=== PATIENT | male | born 1955 | race Caucasian/White ===

== ENCOUNTER 2019-07-16 10:25 | Outpatient (CLI) | payer MEDICARE, OTHER ==
[~2019-07-16] VITALS: Ht 182.9 cm; Wt 63.6 kg
--- NOTE | ~2019-07-16 | HEMODYNAMI ---
PATIENT:FLAQUITA ACOSTA MEDICAL RECORD: [id number] : 51 LOCATION:[facility] ADMISSION DATE: 07/16/19 Generatedon:07/16/201913:30 Patient name: FLAQUITA ACOSTA Patient #: [id number] SSN: : 1955 Date of study: 07/16/2019 Page: Of Hemodynamic Procedure Report Patient Data Patient Demographics Procedure consent was obtained First Name: FLAQUITA Gender: Male Last Name: DAVE : 1955 Patient #: [id number] Age: 64 year(s) Race: Accession #: Ethnicity: or [id number] Additional ID: [id number] Contact details [address]: [address] [place] [address] [address]IVE State: [place] City: [place] Zip code: [address] Past Medical History Allergies: No known allergies Admission Admission Data Admission Date: 07/16/2019 Admission Time: 10:25 Arrival Date: 07/16/2019 Arrival Time: 0:00 Insurance Payor: Medicare Height (in.): 72 BSA: 1.84 (m2) Height (cm.): 182.88 BMI: 19.12 (kg/m2) Weight (lbs.): 141 Weight (kg.): 63.96 Lab Results Lab Result Date: 07/16/2019 Lab Result Time: 0:00 Biochemistry Name Units Result Min Max BUN mg/dl 10 --(-*--)-- 7 18 Creatinine mg/dl 1 --(--*-)-- 0.6 1.3 eGFR ml/min 79.32744 *-(----)-- 90 120 NONAFRICAN CBC Name Units Result Min Max Hematocrit % 42.6 --(*---)-- 42 54 Hemoglobin g/dl 14.5 --(*---)-- 13.5 17.5 Procedure Procedure Types Cath Procedure Diagnostic Procedure SANDIE Procedure Description Procedure Date Procedure Date: 07/16/2019 Procedure Start Time: 13:15 Procedure End Time: 13:28 Procedure Staff Name Function Leonardo Major MD Performing Physician Kevin Acosta Lime Kiln Operator Anastasia Mckinney RT Monitor Trish Blanchard RT Monitor Guillermo Solares RN Nurse Ceferino Rider CRNA Additional personnel Procedure Data Procedure Complications No complications Procedure Medications Medication Administration Route Dosage Oxygen etCO2 Nasal cannula 2 l/min Hurricaine Tensed P.O. 1 Sprays Refer to Anesthesia Notes for Sedation Medications Hemodynamics Rest BSA: 1.84 (m2) HGB: 14.5 (g/dl) O2 Consumption: Estimated: 213.88 (ml/min) O2 Consumption indexed: Estimated:116.24 (ml/min/m) Heart Rate: 70 (bpm) Snapshots Pre Cath Intra NCS Post Cath Vital Signs Time Heart Resp SPO2 etCO2 NIBP Rhythm Pain Sedation Rate (ipm) (%) (mmHg) (mmHg) Status Level (bpm) 13:13:36 79 18 98 33.7 108/67(80) NSR 0 (11) 10(A) , No pain 13:17:42 87 13 97 0.7 109/62(80) NSR 0 (11) 9(A) , No pain 13:21:48 86 16 99 2.2 112/64(86) NSR 0 (11) 9(A) , No pain 13:25:57 79 23 100 16.4 101/54(78) NSR 0 (11) 9(A) , No pain 13:26:53 80 24 100 17.9 114/68(86) NSR 0 (11) 10(A) , No pain Medications Time Medication Route Dose Verified Delivered Reason Notes Effectiv eness by by 13:14:59 Oxygen etCO2 2 Leonardo Li used for Nasal l/min [facility] Valentín Solares RN procedure cannula 13:15:08 Hurricaine P.O. 1 Leonardo Li Per Tensed Sprays St Valentín Solares RN physician 13:15:29 Refer to Leonardo Li Anesthesia St Valentín Solares RN Notes for Sedation Medications Procedure Log Time Note 12:57:51 Guillermo Solares RN sent for patient. Start room use. 12:58:36 H&P Date Dictated: 07/04/2019 Within 30 days and on chart., H&P Addendum completed by physician on day of procedure. (MUST COMPLETE FOR ALL OUTPATIENTS). 12:59:15 Patient allergic to No known allergies 13:00:08 Lab Result : BUN 10 mg/dl 13:00:08 Lab Result : Creatinine 1 mg/dl 13:00:08 Lab Result : eGFR NONAFRICAN 79.64017 ml/min 13:00:08 Lab Result : Hemoglobin 14.5 g/dl 13:00:08 Lab Result : Hematocrit 42.6 % 13:00:25 Lab results completed and on chart. 13:01:44 Informed consent obtained and on chart 13:01:52 Arrival Date: 07/16/2019 12:00:00 AM 13:02:00 Insurance Payor : Medicare 13:02:35 Patient Height : 72 inches 13:02:44 Patient Weight : 141 lbs 13:08:03 Kevin Lidgerwood Rouge Mixer present for SANDIE. 13:09:01 Patient arrived from Pre/Post Procedure Room to CCL 1. Patient remains on bed/stretcher for procedure. 13:09:05 Warm blankets applied, and salvador hugger turned on for patient comfort. 13:09:06 Correct patient and procedure confirmed by team. 13:09:06 ECG and BP/O2 sat monitors applied to patient. 13:11:25 Ceferino Rider CRNA present and monitoring patient for TIVA. 13:11:44 IV patent on arrival in left antecubital with 0.9% NaCl at KVO. 13:12:11 Procedure Status Elective Heart Cath (OP). 13:12:20 Procedure Status SANDIE. 13:12:24 Time tracking: Regular hours (M-F 7:00 - 5:00) 13:12:29 Plan of Care:Hemodynamics will remain stable., Cardiac rhythm will remain stable., Comfort level will be maintained., Respiratory function will remain adequate., Patient/ family verbilizes understanding of procedure., Procedure tolerated without complication., Recovers from procedure without complications.. 13:12:37 Vital chart was started 13:12:39 Baseline sample Acquired. 13:13:04 Full Disclosure recording started 13:13:16 Rhythm: sinus rhythm 13:13:20 Pre-procedure instructions explained to patient. 13:13:22 Pre-op teaching completed and patient verbalized understanding. 13:13:27 Family in patients room. 13:13:32 Patient NPO since Midnight. 13:13:36 Is the patient allergic to Iodine/contrast media? No. 13:13:40 Is patient on blood thinner?No 13:13:48 Patient diabetic? No. 13:14:18 Snore? Yes 13:14:22 Previous problem with sedation/anesthesia? No ? 13:14:28 Sleep apnea? No 13:14:30 Sleep apnea? No 13:14:32 Deviated septum? No 13:14:34 Opens mouth fully? Yes 13:14:35 Sticks out tongue? Yes 13:14:39 Airway obstruction? No ? 13:14:53 Airway obstruction? Yes empyhazema 13:14:59 Oxygen 2 l/min etCO2 Nasal cannula was administered by Guillermo Solares RN; used for procedure; Verbal order read back and verified. 13:15:00 Dentures? No ? 13:15:08 Hurricaine Tensed 1 Sprays P.O. was administered by Guillermo Solares RN; Per physician; Verbal order read back and verified. 13:15:15 Alarms reviewed by Alan Worrell 13:15:19 --------ALL STOP TIME OUT------ 13:15:21 Final Timeout: patient, procedure, and site verified with staff and physician. All members of the team are in agreement. 13:15:29 Refer to Anesthesia Notes for Sedation Medications was administered by Guillermo Solares RN; ; Verbal order read back and verified. 13:15:37 Sedation plan: TIVA Medication:Propofol 13:15:43 Procedure started. 13:15:45 SANDIE 13:16:06 SANDIE started. 13:17:16 Baseline sample Acquired. 13:22:13 SANDIE completed. 13:22:18 Procedure ended.(Physican Out) 13:22:49 Post procedure instruction explained to patient.Patient verbalizes understanding. 13:22:50 Patient needs reinforcement of post procedure teaching. 13:23:12 Procedure Complication : No complications 13:28:04 Vital chart was stopped 13:28:24 Operative report dictated upon procedure completion. 13:28:25 See physician's report for complete and final results. 13:28:31 Report given to Pre/Post Procedure Room. 13:28:36 Patient transfered to Pre/Post Procedure Room with Stretcher. 13:28:40 Procedure ended. 13:28:40 Full Disclosure recording stopped 13:28:43 End room use (Document Last) 13:29:19 End room use (Document Last) 13:29:46 End room use (Document Last) 13:30:15 End room use (Document Last) Signature Audit [place] Stage Time Signature Unsigned Intra-Procedure 07/16/2019 Trish Santo 1:29:19 PM RT(R) Intra-Procedure 07/16/2019 Guillermo Solares RN 1:29:46 PM Intra-Procedure 07/16/2019 Leonardo Myers 1:30:15 PM Valentín NUR Intra-Procedure 07/16/2019 Leonardo Myers 1:30:41 PM Valentín NUR [facility] [address] [place] [address]
[2019-07-16] MEDS ORDERED: CELEXA20 MG PO (10:53)
[2019-07-16] MEDS ORDERED: KEPPRA750 MG PO (10:53)
[2019-07-16] MEDS ORDERED: VALIUM10 MG PO (10:53)
[2019-07-16] MEDS ORDERED: PROTONIX40 MG PO (10:54)
[2019-07-16] MEDS ORDERED: SYMBICORT 16010.2 GM INH (10:54)
[2019-07-16] MEDS ORDERED: ALBUTEROL SULF8.5 GM INH (10:54)
[2019-07-16 10:59] VITALS: BP 129/54; Ht 182.9 cm; Wt 63.6 kg
--- NOTE | 2019-07-16 11:10 | NUR ---
PT SCREENED POSITIVE FOR SUICIDAL THOUGHTS. NOTIFIED SAM (TANK ASSEMBLER). PT NOT HAVING ACTIVE THOUGHTS AT THIS TIME, BUT STATES HE HAS HAD THOUGHTS ABOUT ENDING HIS LIFE. NOTIFIED MANAGER DELIVERY OF NEED FOR MENTAL HEALTH SCREEN. INITIATING PROTOCOL.
--- NOTE | 2019-07-16 11:28 | NUR ---
MICHELLE WITH MENTAL HEALTH AT BEDSIDE TO SPEAK WITH PATIENT.
[2019-07-16 11:34] LABS: BASOPHILS 0.6 % (0-2); EOSINOPHILS 3.5 % (0-7); HEMATOCRIT 42.6 % (42.0-54.0); HEMOGLOBIN 14.5 g/dL (13.5-17.5); IMMATURE GRANULOCYTES 0.2 % (0-5); LYMPHOCYTES 22.7 % (15-50); MCH 34.5 pg (26.0-34.0); MCV 101.4 fL (80.0-100.0); MEAN PLATELET VOLUME 9.7 fL (7.4-10.4); MONOCYTES 8.8 % (2-11); NEUTROPHILS 64.2 % (40-80); PLATELET COUNT 159 10x3/uL (130-400); RDW 12.5 % (11.5-14.5); WBC 6.3 10x3/uL (4.8-10.8)
[2019-07-16 11:53] LABS: CALC OSMOLALITY 278 mosm/kg (275-300); CALCIUM 9.2 mg/dL (8.5-10.1); CARBON DIOXIDE 31.3 mmol/L (21.0-32.0); CHLORIDE - SERUM 104 mmol/L (98-107); GLUCOSE 86 mg/dL (74-106); POTASSIUM - SERUM 4.2 mmol/L (3.5-5.1); SODIUM 141 mmol/L (136-145); UREA NITROGEN 10 mg/dL (7-18); eGFR NON AFRICAN AMERICAN 79 mL/min (90-120)
--- NOTE | 2019-07-16 12:29 | NUR ---
PT SITTING UP IN BED, EATING SANDWICH AND VISITING WITH AT BEDSIDE. DENIES ANY C/O PAIN OR NAUSEA. SINUS ALCIDES AT 48, BP IS 84/48. PT ALERT AND DENIES NEEDS AT THIS TIME.
--- NOTE | 2019-07-16 12:48 | NUR ---
DR DOYLE NOTIFIED AND REVIEWED PT'S BEHAVIOR AND ASSESSMENT RESULTS. PT IS A LOW RISK PER DR DOYLE. DR DOYLE STATED TO GIVE RESOURCES TO PT AT TIME OF DISCHARGE. NO FURTHER ORDERS AT THIS TIME. RESOURCES REVIEWED WITH PT AND HE VERBALIZED UNDERSTANDING. PATIENT VEHEMENTLY DENIES SUICIDAL THOUGHTS AT THIS TIME.
--- NOTE | 2019-07-16 14:01 | NUR ---
PT SITTING UP IN BED, VISITING WITH BROTHER AT BEDSIDE. PT IS ALERT AND DENIES ANY C/O. 3 NSR, RATE IS 78. DENIES ANY C/O CHEST PAIN.
--- NOTE | 2019-07-16 14:24 | NUR ---
PT SITTING UP IN BED, VISITING WITH BROTHER AND FRIEND AT BEDSIDE. PT IS ALERT AND DENIES ANY C/O. VSS. RESP WITH EASE ON ROOM AIR. DENIES NEEDS AT THIS TIME.
--- NOTE | 2019-07-16 14:38 | NUR ---
GAG REFLEX INTACT, SANDWICH AND PO FLUIDS SERVED. PT SITTING UP IN BED, ALERT AND DENIES ANY C/O. BROTHER AND FRIEND AT BEDSIDE.
--- NOTE | 2019-07-16 15:01 | NUR ---
PT HAS ALEJANDRA SANDWICH AND PO FLUIDS WITH NO C/O NAUSEA. DR HOLLINS ON PT.
--- NOTE | 2019-07-16 15:09 | NUR ---
IV DC'D WITH CATH INTACT AND PT IS DRESSING FOR DISCHARGE. DISCHARGE INSTRUCTIONS HAVE BEEN REVIEWED WITH PT AND BROTHER WHO VERBALIZE UNDERSTANDING.
--- NOTE | 2019-07-16 15:22 | NUR ---
PT HAS DRESSED FOR DC TO HOME. IS ALERT AND DENIES ANY C/O. PT ESCORTED TO PRIVATE AUTO VIA WC BY NURSE WITH BROTHER DRIVING HIM HOME. PT HAS ALL PERSONAL BELONGINGS AND DC INSTRUCTIONS AT TIME OF DISCHARGE.
--- NOTE | 2019-07-17 10:14 | TEE ---
PATIENT:FLAQUITA ACOSTA MEDICAL RECORD: [id number] LOCATION:[facility] AGE OF PATIENT: 64 ADMISSION DATE: 07/16/19 SEX: M REFERRING PHYSICIAN: INTERPRETING PHYSICIAN: WARREN LEZAMA MD TRANSESOPHAGEAL ECHOCARDIOGRAM Date: 07/16/19 SANDIE CHARGE Y INDICATIONS: MR PREMEDICATIONS: PATIENT'S RESPONSE PROCEDURE DOPPLER MEASUREMENTS: LVIT LA PA RA LVOT RVOT Asc. Ao AV Gradient Peak AV Mean AV Area MV Gradient Peak MV Mean MV Area INTERPRETATION: Doppler: 2-D: COLOR FLOW DOPPLER NORMAL SALINE STUDY: MISCELLANOUS: DIAGNOSIS: PLAN: Butter Printer:3 Dr. Molina Pararescue Manager: 1 VIDYA PEACEOE COMMENTS: DATE OF SERVICE: 07/16/2019 PROCEDURE: Transesophageal note. DESCRIPTION OF PROCEDURE: After general sedation via TIVA, via anesthesia, transesophageal Omniplane probe was placed in the distal esophagus and proximal stomach without difficulty. No LVH. LV internal dimension is normal. Wall motion is normal. EF is greater TRANSESOPHAGEAL ECHOCARDIOGRAM REPORT [id number] FLAQUITA ACOSTA than or equal to 55%. Aortic valve is tricuspid. No evidence of stenosis by Doppler interrogation. Left atrium is normal. 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 Right-sided chambers appear grossly normal. Trivial TR. At the end of procedure, transesophageal Omniplane probe was turned posteriorly and this showed minimal atherosclerotic debris in the ascending aorta. TRANSINT:[id number] Voice Confirmation ID: [id number] DOCUMENT ID: [id number] at 1014 CC: [id number] DICTATION DATE: 07/16/19 1328 SILK FINISHER: 07/17/19 0608 DEP CLI 07/16/19 [place] [id number]
== END 2019-07-16 15:20 | disposition home or self-care (01) ==
LOC: D.CATH 10:25
PROVIDERS: ATTEND Internal Medicine Interventional Cardiology
DX: I34.9 Nonrheumatic mitral valve disorder, unspecified (principal)

== ENCOUNTER 2019-08-18 09:15 | Outpatient (CLI) | payer MEDICARE, OTHER ==
[~2019-08-18] VITALS: Ht 182.9 cm; Wt 64.1 kg
--- NOTE | ~2019-08-18 | HEMODYNAMI ---
PATIENT:FLAQUITA ACOSTA MEDICAL RECORD: [id number] : 51 LOCATION:[facility] ADMISSION DATE: 08/18/19 Generatedon:08/18/201913:58 Patient name: FLAQUITA ACOSTA Patient #: [id number] : 1955 Date of study: 08/18/2019 Page: Of Hemodynamic Procedure Report Patient Data Patient Demographics Procedure consent was obtained First Name: FLAQUITA Gender: Male Last Name: DAVE : 1955 Patient #: [id number] Age: 64 year(s) Race: SSN: [id number] Additional ID: [id number] Contact details [address]: [address] [place] [address] [address]IVE State: [place] City: [place] Zip code: [address] Past Medical History Allergies: No known allergies Admission Admission Data Admission Date: 08/18/2019 Admission Time: 9:15 Arrival Date: 08/18/2019 Arrival Time: 11:00 Admit Source: Other Insurance Payor: Medicare, Private health insurance [facility] #: [id number] Height (in.): 72.05 BSA: 1.85 (m2) Height (cm.): 183 BMI: 19.41 (kg/m2) Weight (lbs.): 143.3 Weight (kg.): 65 Lab Results Lab Result Date: 08/18/2019 Lab Result Time: 0:00 Biochemistry Name Units Result Min Max BUN mg/dl 10 --(-*--)-- 7 18 Creatinine mg/dl 0.9 --(-*--)-- 0.6 1.3 eGFR ml/min 90 --(*---)-- 90 120 NONAFRICAN CBC Name Units Result Min Max Hemoglobin g/dl 13.7 --(*---)-- 13.5 17.5 Procedure Procedure Types Cath Procedure Diagnostic Procedure LHC LHC w/Coronaries Sedation Charges Moderate Sedation up to 30 minutes Procedure Description Procedure Date Procedure Date: 08/18/2019 Procedure Start Time: 13:44 Procedure End Time: 13:53 Procedure Staff Name Function Treva Froilan RT Monitor Guillermo Solares RN Nurse Geovanni Pierson MD Performing Physician Maricruz Gates RT Scrub Procedure Data Cath Procedure Fluoroscopy Diagnostic fluoroscopy Total fluoroscopy Time: 2.4 time: 2.4 min min Diagnostic fluoroscopy Total fluoroscopy dose: 305 dose: 305 mGy mGy Contrast Material Contrast Material Type Amount (ml) Isovue 300 50 Entry Location Entry Primary Successful Side Size Upsize Upsize Entry Closure Syed ccessful Closure Location (Fr) 1 (Fr) 2 (Fr) Remarks Device Remarks Radial Right 6 Fr Mechanical artery Short Compression Estimated blood loss: 5 ml Diagnostic catheters Device Type Used For End Catheter Placement DIAGNOSTIC Buster 110cm Multi-vessel 5Fr catheter ([id number]) Angiography Procedure Complications No complications Procedure Medications Medication Administration Route Dosage Oxygen etCO2 Nasal cannula 2 l/min Lidocaine 2% added to field 20 Heparin Flush Bag added to field 2 bags (1000units/500ml NS) 0.9% NaCl I.V. 100 ml/hr Radial Cocktail I.A. 1 syringe (Verapamil 2mg/Nitro 400mcg/Heparin 1500units) Versed I.V. 2 mg Fentanyl I.V. 100 mcg Versed I.V. 2 mg Fentanyl I.V. 100 mcg Hemodynamics Rest BSA: 1.85 (m2) HGB: 13.7 (g/dl) O2 Consumption: Estimated: 216.11 (ml/min) O2 Co nsumption indexed: Estimated:116.82 (ml/min/m) Heart Rate: 71 (bpm) Pressure Samples Time Site Value (mmHg) Purpose Heart Use Rate(bpm) 13:47 LV 106/8,19 Snapshot 80 Gradients Valve Time Site Site Mean SEP/DFP Peak To Heart Use 1 2 (mmHg) (sec/min) Peak Rate (mmHg) (bpm) Aortic 13:48 LV AO 114 Snapshots Pre Cath Intra NCS Post Cath Vital Signs Time Heart Resp SPO2 etCO2 NIBP Rhythm Pain Sedation Rate (ipm) (%) (mmHg) (mmHg) Status Level (bpm) 13:29:48 70 15 98 27 111/67(88) NSR 0 (11) 10(A) , No pain 13:33:53 71 15 99 26.2 117/67(85) NSR 0 (11) 10(A) , No pain 13:37:59 70 14 99 34.5 106/66(83) NSR 0 (11) 10(A) , No pain 13:41:59 71 15 99 39 109/76(86) NSR 0 (11) 10(A) , No pain 13:46:03 74 18 99 21.8 109/66(83) NSR 0 (11) 10(A) , No pain 13:50:08 79 10 97 39.1 105/57(73) NSR 0 (11) 10(A) , No pain Medications Time Medication Route Dose Verified Delivered Reason Notes Effectiveness by by 13:35:06 Versed I.V. 2 mg Geovanni Buffie for sedation Dangelo Solares RN 13:35:12 Fentanyl I.V. 100 mcg Geovanni Buffie for sedation Dangelo Solares RN 13:42:36 Oxygen etCO2 2 l/min Geovanni Buffie used for Nasal Dangelo Solares RN procedure cannula 13:42:42 Lidocaine 2% added 20ml Geovanni Geovanni for local to vial Dangelo Pierson MD anesthetic field 13:42:47 Heparin Flush added 2 bags Geovanni Geovanni used for Bag to Dangelo Pierson MD procedure (1000units/500ml field NS) 13:42:54 0.9% NaCl I.V. 100 Geovanni Buffie Per ml/hr Dangelo Solares RN physician 13:43:00 Radial Cocktail I.A. 1 Geovanni Geovanni for (Verapamil syringe Dangelo Pierson MD vasodilation 2mg/Nitro 400mcg/Hepari 13:43:35 Versed I.V. 2 mg Geovanni Buffie for sedation Dangelo Solares RN 13:43:38 Fentanyl I.V. 100 mcg Geovanni Buffie for sedation Dangelo Solares RN Procedure Log Time Note 13:12:29 Informed consent obtained and on chart 13:12:39 Admit Source: Other 13:12:43 Arrival Date: 08/18/2019 11:00:00 AM 13:13:06 Insurance Payor : Private health insurance, Medicare 13:13:25 Diagnostic Cath Status : Elective 13:15:23 Lab Result : BUN 10 mg/dl 13:15:24 Lab Result : Hemoglobin 13.7 g/dl 13:15:24 Lab Result : eGFR NONAFRICAN 90 ml/min 13:15:24 Lab Result : Creatinine 0.9 mg/dl 13:16:25 Patient Weight : 143.3 lbs 13:16:30 Patient Height : 72.05 inches 13:16:40 Procedure Status Elective Heart Cath (OP). 13:16:45 Maricruz Gates RT(R) sent for patient. Start room use. 13:16:46 Time tracking: Regular hours (M-F 7:00 - 5:00) 13:16:50 Plan of Care:Hemodynamics will remain stable., Cardiac rhythm will remain stable., Comfort level will be maintained., Respiratory function will remain adequate., Patient/ family verbilizes understanding of procedure., Procedure tolerated without complication., Recovers from procedure without complications.. 13:20:01 1) 90+ Normal kidney functon but urine findings or structural abnormalities or genetic trait point to kidney disease. 13:20:05 Maximum allowable contrast dose (3.7 X eGFR X 0.75)250 ml. 13:20:15 Risk of Mortality: <.1 13:20:20 Risk of blood transfusion: 0.8 13:20:24 Risk of LAISHA: 0.8 13:28:44 Vital chart was started 13:31:43 Patient received from Pre/Post Procedure Room to CCL 2 Alert and oriented. Tansferred to table in Supine position. 13:31:44 Warm blankets applied, and salvador hugger turned on for patient comfort. 13:31:45 ECG and BP/O2 sat monitors applied to patient. 13:31:45 Correct patient and procedure confirmed by team. 13:31:46 Baseline sample Acquired. 13:31:50 Rhythm: sinus rhythm 13:31:59 Full Disclosure recording started 13:32:03 H&P Date Dictated: 08/18/2019 Within 30 days and on chart., H&P Addendum completed by physician on day of procedure. (MUST COMPLETE FOR ALL OUTPATIENTS). 13:32:04 Pre-op teaching completed and patient verbalized understanding. 13:32:04 Pre-procedure instructions explained to patient. 13:32:06 Family in patients room. 13:32:07 Patient NPO since Midnight. 13:32:10 Is the patient allergic to Iodine/contrast media? No. 13:32:11 Was the patient premedicated? Yes 13:33:23 Is patient on blood thinner?No 13:33:25 Patient diabetic? No. 13:33:27 Previous problem with sedation/anesthesia? No ? 13:33:29 Snore? No 13:33:30 Sleep apnea? No 13:33:31 Deviated septum? No 13:33:32 Sticks out tongue? Yes 13:33:32 Opens mouth fully? Yes 13:33:43 Airway obstruction? Yes copd, emphysema 13:33:46 Dentures? No ? 13:33:49 Pre procedure: right dorsailis pedis pulse 2+ Normal; easily identifiable; not easily obliterated 13:33:52 Pre procedure: left dorsailis pedis pulse 2+ Normal; easily identifiable; not easily obliterated 13:33:54 Patient pain scale 0/10 ?. 13:34:03 IV patent on arrival in left forearm with 0.9% NaCl at [facility]. 13:34:06 Lab results completed and on chart. 13:34:33 Stress Test: no; N/A ? 13:34:37 Right Radial & Right Groin area was prepped with chlora-prep and draped in sterile fashion 13:34:38 Sharps counted by scrub and verified by R.N. 13:34:38 Alarms reviewed by R. N. 13:34:40 Final Timeout: patient, procedure, and site verified with staff and physician. All members of the team are in agreement. 13:34:40 --------ALL STOP TIME OUT------ 13:34:40 Physician arrived 13:34:43 Right Radial & Right Groin site verified by team. 13:34:46 Fire Safety Assessment: A--An alcohol-based skin anteseptic being used preoperatively., C--Open oxygen or nitrous oxide is being used., D--An ESU, laser, or fiber-optic light is being used. 13:34:49 Physical assessment completed. ASA score P 2 - A patient with mild systemic disease as per Geovanni Pierson MD. 13:34:54 Sedation plan: IV Moderate Sedation Medication:Versed, Fentanyl 13:34:56 Use device set Radial Dx or PCI 13:34:57 ACIST Syringe (13115) opened to sterile field. 13:34:58 ACIST Hand Control (36637) opened to sterile field. 13:34:58 Bag Decanter (2001S) opened to sterile field. 13:34:58 Medline Cath Pack ([id number]) opened to sterile field. 13:34:59 Tegaderm 4 x 4 (1626W) opened to sterile field. 13:34:59 ACIST Manifold (33943) opened to sterile field. 13:35:00 MBrace Wrist Support ([id number]) opened to sterile field. 13:35:02 NEEDLE Cook 21G 4cm Radial (R13338) opened to sterile field. 13:35:04 SHEATH 6FR RAIN (4722440) opened to sterile field. 13:35:06 Versed 2 mg I.V. was administered by Guillermo Solares RN; for sedation; Verbal order read back and verified. 13:35:06 EMERALD Guide Wire (847-676) opened to sterile field. 13:35:07 ZEPHYR REGULAR TR BAND (921473) opened to sterile field. 13:35:12 Fentanyl 100 mcg I.V. was administered by Guillermo Solares RN; for sedation; Verbal order read back and verified. 13:37:10 Zero performed for pressure channel P1 13:42:36 Oxygen 2 l/min etCO2 Nasal cannula was administered by Guillermo Solares RN; used for procedure; Verbal order read back and verified. 13:42:42 Lidocaine 2% 20ml vial added to field was administered by Geovanni Pierson MD; for local anesthetic; Verbal order read back and verified. 13:42:47 Heparin Flush Bag (1000units/500ml NS) 2 bags added to field was administered by Geovanni Pierson MD; used for procedure; Verbal order read back and verified. 13:42:54 0.9% NaCl 100 ml/hr I.V. was administered by Guillermo Solares RN; Per physician; Verbal order read back and verified. 13:43:00 Radial Cocktail (Verapamil 2mg/Nitro 400mcg/Heparin 1500units) 1 syringe I.A. was administered by Geovanni Pierson MD; for vasodilation; Verbal order read back and verified. 13:43:35 Versed 2 mg I.V. was administered by Guillermo Solares RN; for sedation; Verbal order read back and verified. 13:43:38 Fentanyl 100 mcg I.V. was administered by Guillermo Solares RN; for sedation; Verbal order read back and verified. 13:44:24 Procedure started. 13:44:36 Local anesthetic to right radial artery with Lidocaine 2% by Geovanni Pierson MD.INITIAL ACCESS ONLY 13:44:47 A 6 Fr Short sheath was inserted into the Right Radial artery 13:45:24 A DIAGNOSTIC Buster 110cm 5Fr catheter ([id number]) was advanced over the wire and used for Multi-vessel Angiography. 13:47:44 LV hemodynamics recorded. 13:47:45 LV gram done using MARMOLEJO 13:47:48 Injector settings: Ml/sec: 5, Volume: 15, 13:47:54 EF : 55 % 13:49:04 RCA angiography performed. 13:49:06 Injector settings: Ml/sec: 3, Volume: 6, 13:49:45 LCA angiography performed. 13:49:47 Injector settings: Ml/sec: 3, Volume: 6, 13:50:50 ACCDominant side:Co-Dominant 13:50:51 Catheter removed. 13:51:22 Sheath removed intact; hemostasis achieved with Mechanical Compression to the Right Radial artery. 13:51:29 Procedure ended.(Physican Out) 13:51:50 Fluoroscopy time 02.40 minutes. 13:51:53 Fluoroscopy dose: 305 mGy 13:51:53 Flurop Dose total: 305 13:51:59 Dose Area Product 34193 mGy/cm. 13:52:03 Contrast amount:Isovue 300 50ml. 13:52:06 Maximum allowable dose exceeded? No. 13:52:38 Insertion/operative site no bleeding no hematoma. 13:52:43 Post-op/insertion site Right Radial artery dressed using a 4 x 4 and Tegaderm. 13:52:46 Post Procedure Pulses reassessed and unchanged 13:52:49 Post procedure rhythm: unchanged. 13:52:52 Estimated blood loss: 5 ml 13:52:53 Post procedure instruction explained to patient.Patient verbalizes understanding. 13:52:54 Patient needs reinforcement of post procedure teaching. 13:53:02 Procedure type changed to Cath procedure, Diagnostic procedure, LHC, [facility] w/Coronaries, Sedation Charges, Moderate Sedation up to 30 minutes 13:53:03 Procedure and supply charges have been captured, reviewed, submitted and are correct. 13:53:08 Procedure Complication : No complications 13:53:11 Vital chart was stopped 13:53:25 LHC Findings: MERLE- will discuss options w/ pt 13:53:28 See physician's report for complete and final results. 13:53:28 Operative report dictated upon procedure completion. 13:53:30 Report given to Med II. 13:53:46 Patient transfered to Med II with Stretcher. 13:53:48 Full Disclosure recording stopped 13:53:48 Procedure ended. 13:54:01 End room use (Document Last) Device Usage Item Name Manufacture Quantity Catalog Hospital Part Current Minima l Lot# / Number Charge Number Stock Stock Serial# Code ACIST Acist 1 17637 [id number] [id number] [id number] 20 Syringe Medical (03353) Systems Inc Medline Medline 1 [id number] 171984 89190 759354 5 Cath Pack ([id number]) Bag Microtek 1 2001S 894628 63232 455855 5 Decanter Medical Inc. () ACIST Hand Acist 1 90522 503884 666807 749706 5 Control Medical (46515) Systems Inc ACIST Acist 1 01363 483258 823029 479709 5 Manifold Medical (78104) Systems Inc Tegaderm 4 3M 1 1626W 165777 925222 627849 5 x 4 (1626W) MBrace Advanced 1 140-0250-00 205499 55082 027315 5 Wrist Vascular Support Dynamics ([id number]) NEEDLE Cook Cook Medical 1 Q05473 649145 265672 969212 5 21G 4cm Radial (O16439) SHEATH 6FR Cardinal 1 1910202 569057 6453932 122139 5 RAIN Health (6551261) EMERALD Cardinal 1 502-455 733727 242716 244880 5 Guide Wire Health (502-455) ZEPHYR Cardinal 1 464001 336405 9411596 458344 5 REGULAR TR Health BAND (509389) DIAGNOSTIC Terumo 1 40-6359 166127 867581 634632 5 Buster 110cm 5Fr catheter (535686) Signature Audit Bartlett Stage Time Signature Unsigned Intra-Procedure 08/18/2019 Treva Mcgovern 1:55:11 PM RT(R) Intra-Procedure 08/18/2019 Guillermo Solares RN 1:57:02 PM Intra-Procedure 08/18/2019 Geovanni Pierson MD 1:58:37 PM Signatures Monitor : Treva Froilan RT Signature : Date : Time : Nurse : Buffie Solares RN Signature : Date : Time : Performing Physician : Signature : Geovanni Pierson MD Date : Time : [place] [address] [place] [address]
[~2019-08-18 09:15] MED LIST: ALBUTEROL SULF8.5 GM INH; CELEXA20 MG PO; KEPPRA750 MG PO; PROTONIX40 MG PO; SYMBICORT 16010.2 GM INH; VALIUM10 MG PO
[2019-08-18 09:48] VITALS: BP 100/50; BMI 19.1
[2019-08-18 10:19] LABS: BASOPHILS 0.3 % (0-2); EOSINOPHILS 2.2 % (0-7); HEMATOCRIT 40.8 % (42.0-54.0); HEMOGLOBIN 13.7 g/dL (13.5-17.5); IMMATURE GRANULOCYTES 0.2 % (0-5); LYMPHOCYTES 17.7 % (15-50); MCH 34.3 pg (26.0-34.0); MCHC 33.6 g/dL (31.0-37.0); MEAN PLATELET VOLUME 9.5 fL (7.4-10.4); MONOCYTES 5.9 % (2-11); NEUTROPHILS 73.7 % (40-80); PLATELET COUNT 232 10x3/uL (130-400); RDW 12.8 % (11.5-14.5); WBC 6.4 10x3/uL (4.8-10.8)
[2019-08-18 10:29] LABS: CALC OSMOLALITY 276 mosm/kg (275-300); CALCIUM 9.1 mg/dL (8.5-10.1); CHLORIDE - SERUM 101 mmol/L (98-107); CREATININE - SERUM 0.9 mg/dL (0.6-1.3); GLUCOSE 88 mg/dL (74-106); POTASSIUM - SERUM 3.6 mmol/L (3.5-5.1); SODIUM 140 mmol/L (136-145); UREA NITROGEN 10 mg/dL (7-18); eGFR NON AFRICAN AMERICAN 90 mL/min (90-120)
[2019-08-18 10:42] LABS: ALT (SGPT) 20 U/L (10-68); CHOL - HDL RATIO 3.9 ratio (2.3-4.9); CHOLESTEROL, TOTAL 208 mg/dL (0-200); HDL CHOLESTEROL 54 mg/dL (32-96); LDL CHOLESTEROL 137 mg/dL (0-100); LDL-HDL RATIO 2.5 ratio (1.5-3.5); TRIGLYCERIDE 89 mg/dL (30-200)
--- NOTE | 2019-08-18 14:55 | NUR ---
RECIEVED FROM HELPER/DRIVER. AWAKE AND ALERT. ORIENTED TIMES 3. RIGHT WRIST ZEPHYR BAND. NO BLEEDING NOTED. FINGERS WARM. FAMILY AT BEDSIDE. DENIES ANY NEEDS. IV TO LEFT FA. WILL MONITOR
--- NOTE | 2019-08-18 16:13 | NUR ---
PAGE INTO DR HCASE FOR CLAFICATION OF DISCHARGE JOSEPH LEZAMA PUT ADMISSION ORDER IN. AWAITING CALL BACK.
[2019-08-18 16:16] VITALS: BP 98/57
--- NOTE | 2019-08-18 16:16 | NUR ---
PAGE INTO DR DENISE FOR DISCHARGE ORDERS. AWAITING CALL BACK.
[2019-08-18 16:27] VITALS: Ht 182.9 cm; Wt 64.1 kg
--- NOTE | 2019-08-18 17:50 | NUR ---
PT DISCHARGED. TR BAND OFF, NO BLEEDING. FINGERS WARM. INSTRUCTIONS GIVEN TO PT. TO PRIVATE CAR PER WHEELCHAIR
--- NOTE | 2019-08-19 09:54 | MORECARE ---
CASE MANAGEMENT DISCHARGE SUMMARY PATIENT: FLAQUITA ACOSTA UNIT: [id number] ADM DATE: 08/18/19 AGE: 64 : 51 SEX: M ROOM/BED: D.2120 AUTHOR: ILEANA ALVARADO PHYSICIAN: REFERRING PHYSICIAN: VIRGINIE DENISE M.D. DATE OF SERVICE: 08/19/19 Discharge Plan Patient Name: FLAQUITA ACOSTA Facility: [facility]:[place] : 1955 Planned Disposition: Home Anticipated Discharge Date: 08/18/19 Discharge Date: 08/18/2019 Expected LOS: 1 Initial Reviewer: [id number] Initial Review Date: 08/19/2019 Generated: 08/19/19 10:54 am Patient Name: FLAQUITA ACOSTA Page 24811 at 0954 All edits/amendments must be made on the electronic document DICTATION DATE: 08/19/19953 SPRAY DYER: DAVID 08/19/19953 RPT#: [id number] DC DATE:08/18/19 STATUS: DIS IN [facility] [address] [place] [address] END OF REPORT
== END 2019-08-18 18:00 | disposition home or self-care (01) ==
LOC: OBSVTIME → D.CATH 09:15 → D.M2 14:15 → D.CATH 17:30 → D.M2 17:37 → D.CATH 17:37 → OBSVTIME 17:37 → D.M2 17:37 → D.CATH 18:00 → D.M2 18:00
PROVIDERS: ATTEND Internal Medicine Cardiovascular Disease
PROC: B2151ZZ Fluoroscopy of Left Heart using Low Osmolar Contrast (ICD-10-PCS; 2019-08-18)
PROC: 4A023N7 Measurement of Cardiac Sampling and Pressure, Left Heart, Percutaneous Approach (ICD-10-PCS; 2019-08-18)
PROC: B2111ZZ Fluoroscopy of Multiple Coronary Arteries using Low Osmolar Contrast (ICD-10-PCS; principal; 2019-08-18 11:00)
DX: I34.0 Nonrheumatic mitral (valve) insufficiency (principal); G40.909 Epilepsy, unspecified, not intractable, without status epilepticus; J43.9 Emphysema, unspecified; Z72.0 Tobacco use